=== PATIENT | female | born 1960 | race African-American/Black ===

== ENCOUNTER 2016-10-03 07:30 | Inpatient (IN) ==
[2016-09-27 10:02] LABS: MANUAL DIFF NEEDED? NO
[2016-09-27 10:05] LABS: BASO% 0.3 % (0.0-0.8); EOS# 0.02 X1000 (0.0-0.7); EOS% 0.3 % (0.0-10.0); HEMATOCRIT 50.2 % (37.0-47.0); HEMOGLOBIN 17.6 g/dL (12.0-16.0); IMM GRAN# 0.02 X1000 (0.0-0.04); IMM GRAN% 0.3 % (0.0-0.5); LYMPH# 2.21 X1000 (1.2-3.4); MCH 30.6 PG (27-31); MCHC 35.1 g/dL (33-37); MCV 87.3 FL (81-99); MONO# 0.53 X1000 (0.11-0.59); MONO% 9.1 % (1.7-9.3); MPV 11.3 FL (7.4-10.4); PLT 204 X1000 (130-400); RBC 5.75 XMIL (4.2-5.4)
--- NOTE | 2016-10-02 13:12 | HISTORY AND PHYSICAL ---
ADMITTING PHYSICIAN: Dr. Starr. ADMITTING DIAGNOSES: 1. Pelvic pain. 2. Right adnexal mass. SUMMARY: Mrs. Garcia is a 56-year-old, 4, para 1-0-3-1 who recently was diagnosed with a right complex adnexal mass. It measures 5.7 x 4.6 x 5.2 cm. There are both solid and cystic areas identified. We did a CA-125 which is 10. After discussing options with the patient, she is being admitted as an outpatient. We will attempt to do laparoscopic surgery and remove both ovaries. If there are too many adhesions we will do an exploratory laparotomy, and remove both ovaries. PAST MEDICAL HISTORY: Patient has had a vaginal delivery followed by 3 spontaneous miscarriages. She had a total abdominal hysterectomy in 2003 for fibroids. Prior to that she had a myomectomy. She has had cervical neck surgery 3 times. ALLERGIES: To amoxicillin and morphine. CURRENT MEDICATIONS ARE: Losartan/hydrochlorothiazide and metoprolol. PHYSICAL EXAMINATION: WEIGHT: Her weight is 173, blood pressure 120/80. CARDIOVASCULAR: Regular rate and rhythm without murmurs, rubs, or gallops. PULMONARY: Clear. BREASTS: No masses. ABDOMEN: Tender without rebound, rigidity, or guarding. PELVIC: On pelvic examination, there is diffuse tenderness. EXTREMITIES: No clubbing, edema or cyanosis. IMPRESSION: 1. Pelvic pain. 2. Right adnexal mass. PLAN: We will proceed with laparoscopy. Risks of the surgery including pain, bleeding, infection, bowel or bladder injury, and anesthesia complications have been discussed. She understands that if we are unable to remove the ovaries laparoscopically a laparotomy will be performed.
[2016-10-03] MEDS ORDERED: LR 1,000 ML ONE ×4 (08:46→13:12)
[2016-10-03] MEDS ORDERED: SODIUM CHLORIDE 0.9% 10 ML ONE (08:54)
[2016-10-03] MEDS ORDERED: REGLAN ONE (08:54)
[2016-10-03] MEDS ORDERED: PEPCID ONE (08:54)
[2016-10-03] MEDS ORDERED: DIPRIVAN 1% ONE ×2 (08:59→10:59)
[2016-10-03] MEDS ORDERED: VERSED ONE (08:59)
[2016-10-03] MEDS ORDERED: FENTANYL ONE (08:59)
[2016-10-03] MEDS ORDERED: SENSORCAINE 0.25%/EPI 1:200,000 ONE (10:19)
[2016-10-03] MEDS ORDERED: DECADRON ONE ×2 (11:05→17:26)
[2016-10-03] MEDS ORDERED: CLAVE SECONDARY SET 11953 ONE (11:22)
[2016-10-03] MEDS ORDERED: KEFZOL 1 GM/D5W 50 ML ONE (11:22)
[2016-10-03 12:05] LABS: URINE SOURCE CATH
[2016-10-03 12:07] LABS: BILIRUBIN URINE NEGATIVE (NEGATIVE); BLOOD URINE 1+ (NEGATIVE); CLARITY CLEAR (CLEAR); COLOR YELLOW; GLUCOSE URINE NEGATIVE (NEGATIVE); LEUKOCYTES URINE TRACE (NEGATIVE); NITRITE URINE NEGATIVE (NEGATIVE); PROTEIN URINE 1+(30 mg/dL) mg/dL (NEGATIVE); SP GRAVITY URINE 1.015; URINE MICROSCOPIC NEEDED? YES; UROBILINOGEN URINE 4+(12 mg/dL)
[2016-10-03] MEDS ORDERED: AMBIEN PO PRN (12:09)
[2016-10-03] MEDS ORDERED: DEMEROL IM PRN (12:09)
[2016-10-03] MEDS ORDERED: NORCO-10 PO PRN (12:09)
[2016-10-03] MEDS ORDERED: ZOFRAN ODT PO PRN (12:09)
[2016-10-03] MEDS ORDERED: PHENERGAN IM PRN (12:09)
[2016-10-03] MEDS ORDERED: NORCO-5 PO PRN (12:09)
[2016-10-03] MEDS ORDERED: LEVSIN-SL SL PRN (12:09)
[2016-10-03] MEDS ORDERED: FLEET ENEMA PR PRN (12:09)
[2016-10-03] MEDS ORDERED: ZOFRAN IV PRN ×2 (12:09→14:38)
[2016-10-03] MEDS ORDERED: DULCOLAX PR PRN (12:09)
[2016-10-03 12:20] LABS: URINE EPITHELIAL CELLS <10 /HPF (<10); URINE RBC <10 /HPF (<10); URINE WBC <10 /HPF (<10)
[2016-10-03] MEDS: DILAUDID ONE ×5 (12:46→13:34)
[2016-10-03] MEDS ORDERED: TORADOL ONE (12:50)
--- NOTE | 2016-10-03 13:10 | OPERATIVE NOTE ---
PROCEDURE DATE: 10/03/2016 SURGEON: Akash Starr MD ASSISTANT TEACHER: Akash Ng MD ANESTHESIA: General endotracheal. OPERATION PERFORMED: 1. Laparoscopy. 2. Laparotomy. 3. Lysis of adhesions. 4. Right salpingo-oophorectomy. PREOPERATIVE DIAGNOSIS: Right ovarian cyst. POSTOPERATIVE DIAGNOSES: 1. Pelvic adhesions. 2. Right ovarian cyst. FINDINGS: At laparoscopy, extensive adhesions were encountered. We attempted to take these down laparoscopically. We were unsuccessful. Therefore, we did a laparotomy with further lysis of adhesions. We visualized a large, cystic right ovary. It appeared to be a simple cyst. The left adnexa could not be visualized or palpated. DESCRIPTION OF PROCEDURE: The patient was taken back to the operating room and, after general endotracheal anesthesia, was placed in the dorsal lithotomy position. The vagina, perineum, and abdomen were prepped and draped in the usual fashion. A Early catheter was placed in the urinary bladder. A periumbilical incision was made and, through this incision, a Veress needle was inserted. A pneumoperitoneum was created. A laparoscopic trocar was introduced without difficulty. There was no evidence of bowel or blood vessel injury. We had some visualization on the patient's left side. A 5 mm port was placed and, through this, the LigaSure device was placed and we attempted to take down adhesions. We were unable to take down the adhesions to the point of being able to visualize the right side of her abdomen. We therefore aborted the laparoscopy and proceed with laparotomy. She received IV antibiotics as we placed her in the supine position and removed the laparoscopic equipment. The laparoscopic incision was oversewn using Vicryl suture. A repeat midline incision was made. This was taken down to the fascia and the fascia was excised transversely. The rectus muscle was in the midline. The peritoneum was entered carefully. We then did extensive lysis of adhesions, bluntly and sharply, along with partial omentectomies to be able to visualize the pelvis. Once we were able to visualize the pelvis, we could see the large cystic right ovary. Using blunt and sharp dissection, the ovary was cleared. We used the LigaSure device to clamp, cauterize, and excised the infundibulopelvic ligament. Several other dense bands of adhesions were taken down and the ovary was removed intact. We then spent approximately 15 minutes trying to visualize the left adnexa. However, there were extensive adhesions in that area and we never could visualize or palpate the ovary. The decision was made to abort the attempt at left oophorectomy. At this point, all packs and instruments were removed. Initial sponge, instrument, and needle counts were reported as correct as the fascia was closed using running Vicryl suture. The 2nd and final sponge, instrument, and needle count was reported as correct. His adipose tissues were reapproximated using a running Vicryl suture and the skin edges then were approximated using azalia. Blood loss was approximately 30 mL. There were no complications. The patient was extubated and went to the recovery room in stable condition.
[2016-10-03] MEDS ORDERED: LASIX ONE (13:51)
[2016-10-03] MEDS: MYLICON PO SCH ×3 (14:22→20:39)
[2016-10-03] MEDS ORDERED: NARCAN IV PRN (14:38)
[2016-10-03] MEDS ORDERED: DILAUDID PCA VIAL IV PRN (14:38)
[2016-10-03] MEDS: LR 1,000 ML IV SCH (14:59)
[2016-10-03] MEDS: OFIRMEV 1000 MG/ISOTONIC SOLN 100 ML IV SCH ×2 (15:09→20:39)
[2016-10-03 16:15] LABS: HEMATOCRIT 51.2 % (37.0-47.0); HEMOGLOBIN 17.2 g/dL (12.0-16.0)
[2016-10-03] MEDS ORDERED: ZOFRAN ONE (17:26)
[2016-10-03] MEDS ORDERED: NEOSTIGMINE ONE (17:26)
[2016-10-03] MEDS ORDERED: ZEMURON ONE (17:26)
[2016-10-03] MEDS ORDERED: ROBINUL ONE (17:26)
[2016-10-03] MEDS ORDERED: QUELICIN (DOSE) ONE (17:26)
[2016-10-03] MEDS ORDERED: XYLOCAINE-MPF 2% ONE (17:26)
[2016-10-03] MEDS: TORADOL IV SCH (17:53)
[2016-10-03] MEDS: COLACE PO SCH (20:39)
[2016-10-03] MEDS ORDERED: PERIDEX MT SCH (21:00)
[2016-10-04] MEDS: TORADOL IV SCH ×2 (00:19→06:04)
[2016-10-04] MEDS: LR 1,000 ML IV SCH ×2 (00:23→06:04)
[2016-10-04] MEDS: OFIRMEV 1000 MG/ISOTONIC SOLN 100 ML IV SCH (02:40)
[2016-10-04] MEDS ORDERED: HYDROCODONE/APAP 7.5-325/15 ML PO PRN (06:12)
[2016-10-04 06:20] LABS: HEMATOCRIT 46.9 % (37.0-47.0); HEMOGLOBIN 15.6 g/dL (12.0-16.0); MCH 30.5 PG (27-31); MCHC 33.3 g/dL (33-37); MCV 91.6 FL (81-99); RBC 5.12 XMIL (4.2-5.4)
[2016-10-04] MEDS ORDERED: LOPRESSOR PO SCH (09:00)
[2016-10-04] MEDS ORDERED: HYDROCHLOROTHIAZIDE PO SCH ×2 (09:00)
[2016-10-04] MEDS ORDERED: COZAAR PO SCH (09:00)
[2016-10-04] MEDS ORDERED: LOSARTAN PO SCH (09:00)
[2016-10-04] MEDS: MYLICON PO SCH ×2 (09:26→12:47)
[2016-10-04] MEDS: COLACE PO SCH (09:26)
[2016-10-04] MEDS ORDERED: D/C PCA XX ONE (12:00)
[2016-10-04 16:06] VITALS: BP 126/78
--- NOTE | 2016-10-04 17:43 | DISCHARGE SUMMARY ---
ADMISSION DATE: 10/03/2016 DISCHARGE DATE: 10/04/2016 ADMITTING DIAGNOSES: 1. Pelvic pain. 2. Right adnexal mass. PRINCIPAL DIAGNOSES: 1. Pelvic pain. 2. Right adnexal mass. PRINCIPAL PROCEDURE: Laparoscopy followed by laparotomy, lysis of adhesions and right S and O. SUMMARY: Mrs. Garcia a 56-year-old, 4, para 1-0-3-1 who was recently diagnosed with a right complex adnexal mass. A CA-125 was in the normal range. After discussing options with the patient, she was admitted to the hospital. We attempted laparoscopic removal but due to extensive pelvic adhesions that was unsuccessful. We then did an exploratory laparotomy, and removed the right adnexa. I could not visualize the left adnexa. Final pathology report is pending. Postoperatively, the patient has done well. She has remained afebrile and all her vital signs were stable. She had an admission hemoglobin and hematocrit of 17.6/50.2 with discharge hemoglobin and hematocrit being 15.6/46.9. She is requesting discharge this evening. Her vital signs are stable. She is afebrile. Cardiovascular and pulmonary examinations were normal. Incision was clean and dry. Mrs. Garcia will go home today and I will see her back in the office next week. Routine discharge instructions, activity limitations, and precautions were discussed. She will be given a prescription for [place] 10 for postoperative pain.
== END 2016-10-04 18:00 | disposition home or self-care (01) | DRG 743 ==
LOC: P.OR 07:30 → P.WC 09:10 → P.OR 10-04 18:00 → P.WC 10-04 18:00
PROVIDERS: ADMIT Obstetrics & Gynecology; ATTEND Obstetrics & Gynecology
PROC: 0WJJ4ZZ Inspection of Pelvic Cavity, Percutaneous Endoscopic Approach (ICD-10-PCS; 2016-10-03)
PROC: 0UT50ZZ Resection of Right Fallopian Tube, Open Approach (ICD-10-PCS; principal; 2016-10-03 10:43)
PROC: 0UT00ZZ Resection of Right Ovary, Open Approach (ICD-10-PCS; 2016-10-03 10:43)
PROC: 0DNS0ZZ (ICD-10-PCS; 2016-10-03 10:43)
PROC: 0DNW0ZZ Release Peritoneum, Open Approach (ICD-10-PCS; 2016-10-03 10:43)
DX: N83.291 Other ovarian cyst, right side (principal); I10 Essential (primary) hypertension; N73.6 Female pelvic peritoneal adhesions (postinfective); F17.210 Nicotine dependence, cigarettes, uncomplicated; M46.90 Unspecified inflammatory spondylopathy, site unspecified; Z98.1 Arthrodesis status; Z79.899 Other long term (current) drug therapy
CPT/HCPCS: 36415; 81001; 85014; 85018; 85025; 85027; 94761; 94799; J0131; J0330; J0690; J1100; J1170; J1885; J1940; J2250; J2405; J2765; J3010; J7120; J2710; S0028

== ENCOUNTER 2019-09-28 10:39 | Inpatient (IN) ==
[2019-09-28] MEDS ORDERED: SODIUM CHLORIDE 0.9% INJ SCH (11:30)
[2019-09-28] MEDS ORDERED: NS 1,000 ML IV SCH (11:30)
--- NOTE | 2019-09-28 11:54 | Diag Imaging Result Doc PS360 ---
EXAM: CHEST-2 VIEWS INDICATION: SOB TECHNIQUE: 2 views COMPARISON: 08/27/2017 FINDINGS: The lungs are grossly clear. There is no discrete pleural fluid collection or pneumothorax. The cardiomediastinal silhouette and central vasculature are grossly unremarkable. IMPRESSION: No evidence of acute pathology by plain radiograph. Electronically signed by Akash Neal 09/28/2019 11:52 AM
--- NOTE | 2019-09-28 12:45 | EKG Report ---
Test Performed on : 09/28/2019 12:38:36 PM Test Reason : chest pain Blood Pressure : / mmHG Vent. Rate : 069 BPM Atrial Rate : 069 BPM P-R Int : 162 ms QRS Dur : 068 ms QT Int : 404 ms P-R-T Axes : 037 003 031 degrees QTc Int : 432 ms Normal sinus rhythm. Low voltage QRS Cannot rule out Anteroseptal infarct (cited on or before 27-DEC-2013) Abnormal ECG When compared with ECG of 05-JAN-2019 07:28, Questionable change in initial forces of Anterior leads Confirmed by Zafar Mcdaniel MD ([id number]) on 09/29/2019 9:00:51 PM
--- NOTE | 2019-09-28 14:00 | Diag Imaging Result Doc PS360 ---
EXAM: US ABDOMEN-COMPLETE INDICATION: nausea COMPARISON: None. FINDINGS: The gallbladder appears normal with no stones, wall thickening, or pericholecystic fluid. The common bile duct is normal in diameter. Sonographic Velasco's sign was reported to be negative. The liver is grossly unremarkable. Portal venous flow is hepatopetal. The visualized pancreas is unremarkable. The aorta and IVC are grossly unremarkable. The spleen is unremarkable. There is an 8 mm simple cyst associated with the left renal cortex. The kidneys are unremarkable, otherwise. IMPRESSION: Essentially unremarkable abdominal ultrasound. Electronically signed by Akash Neal 09/28/2019 1:58 PM
[2019-09-28] MEDS: PROTONIX IV SCH (14:49)
[2019-09-28] MEDS: SODIUM CHLORIDE 0.9% INJ SCH (14:49)
[2019-09-28 17:17] LABS: BASO# 0.03 X1000 (0.0-0.2); BASO% 0.3 % (0.0-0.8); EOS# 0.02 X1000 (0.0-0.7); EOS% 0.2 % (0.0-10.0); HEMATOCRIT 51.5 % (37.0-47.0); HEMOGLOBIN 17.6 g/dL (12.0-16.0); LYMPH# 2.09 X1000 (1.2-3.4); LYMPH% 22.4 % (20.5-51.1); MCH 29.8 PG (27-31); MCHC 34.2 g/dL (33-37); MCV 87.1 FL (81-99); MONO# 0.97 X1000 (0.11-0.59); MONO% 10.4 % (1.7-9.3); NEUT% 66.7 % (42.2-75.2); PLT 145 X1000 (130-400); RBC 5.91 XMIL (4.2-5.4); RDW 12.5 % (11.5-14.5); WBC 9.31 X1000 (4.8-10.8)
[2019-09-28] MEDS ORDERED: PNEUMOVAX 23 IM ONE (18:45)
[2019-09-28 19:38] LABS: AMYLASE 72 U/L (20-200); CK PROFILE 56 U/L (24-173); LIPASE 31 U/L (13-60)
[2019-09-28 19:39] LABS: ALB/GLOB RATIO 1.4; ALBUMIN 4.1 g/dL (3.5-5.0); ALKALINE PHOSPHATASE 98 U/L (32-104); GOT 16 U/L (10-30); GPT 21 U/L (10-36)
[2019-09-28 19:50] LABS: AGAP 23; BUN 20 mg/dL (8-22); CHLORIDE 85 mmol/L (98-107); COSMO 289; CREATININE 1.1 mg/dL (0.5-0.9); ESTIMATED GFR > 60; GLUCOSE 657 mg/dL (70-104); POTASSIUM 4.2 mmol/L (3.5-5.1); SODIUM 127 mmol/L (136-145); TCO2 19 mmol/L (25-35); TOTAL BILIRUBIN 0.81 mg/dL (0.20-1.00); TOTAL PROTEIN 7.1 g/dL (6.3-8.3)
[2019-09-28] MEDS ORDERED: HUMULIN R IV ONE (20:17)
[2019-09-28] MEDS ORDERED: NS 500 ML IV ONE (20:23)
[2019-09-28] MEDS: NS + KCL 20 MEQ 1,000 ML IV SCH (22:18)
[2019-09-28] MEDS: LOVENOX SUBQ SCH (22:18)
[2019-09-28] MEDS: ZOFRAN IV PRN (22:19)
--- NOTE | 2019-09-28 22:22 | HISTORY AND PHYSICAL ---
CHIEF COMPLAINT: 1. Upper abdominal pain. 2. Nausea every time she eats since Saturday. She is not eating anything for the last 2 days. HISTORY OF PRESENT ILLNESS: She is a 59-year-old female who came to my office with the above symptoms. Chest x-ray was stable and she was clinically dry. She was seen in my office on 09/08/2019 and she had annual exam done. At that time, A1c is going up. The patient was started on metformin. She was tender in epigastric area. I offered the family that she needs some IV fluids and further workup. Rule out gallbladder disease. Rule out peptic ulcer disease. Rule out pancreatitis. Basically, admitted to the hospital. Upon admission, sodium was 127. Blood sugar was 640. Hematocrit was elevated. She is started on IV fluids. In the meantime, workup is in progress. Ultrasound was negative for gallstone disease. CT scan was ordered and is pending. As a result, the hospital admission was warranted. PAST MEDICAL HISTORY: Atypical chest pain. Stress test was negative in 08/28/2018. Cervical spondylosis, uncontrolled diabetes, metabolic syndrome, fatty liver, hypertension, lichen planus, kidney stones, chronic tobacco abuse, nonspecific pulmonary nodules. PAST SURGICAL HISTORY: Partial hysterectomy, cervical vertebral fusion between C4-C5, bilateral cataracts removed, MEDICINES: Lipitor 20 mg daily, freestyle Jose prescription was given, metformin 850 p.o. b.i.d., metoprolol 50 daily, Zanaflex 4 mg as needed. ALLERGIES: Amoxicillin, morphine, and Norvasc. SOCIAL HISTORY: , 1 kid. Disability on social security. Living in [place]. Smoking half a pack a day, trying to quit. Occasionally drinks alcohol. FAMILY HISTORY: Father is 87 years old with high blood pressure. Mom is 75 with high blood pressure. Brother had heart disease. HEALTH MAINTENANCE IN MY OFFICE: Flu vaccine 2018. She is not up-to-date on pneumococcal vaccine. Last mammography May 2018. Mammography 09/10/2019. She has left breast asymmetry. Recommended left breast ultrasound. The last colonoscopy was done June [address] Mckinney. REVIEW OF SYSTEMS: HEENT: No headache. No vision problem. No earache. No sore throat. Neck: No goiter. No lymphadenopathy. No bruit. Cardiopulmonary: No chest pain, shortness of breath, PND, orthopnea. GI: Upper abdominal pain, nausea, vomiting. No constipation. : No history of hesitancy, frequency, dysuria. No swelling of legs. No joint pains. Neurologic: No focal symptoms or weakness. PHYSICAL EXAMINATION: VITAL SIGNS: Temp is 98 degrees, pulse 77, blood pressure 110/64. Height is 4 feet 11, 151 pounds. HEENT: Atraumatic, normocephalic. Pupils equal, react to light. TMs are normal. Dry mucous membranes. NECK: Supple. No lymphadenopathy. CHEST: Bilateral air entry. HEART: Sounds are regular. No murmur. ABDOMEN: Belly is soft, slightly tender in epigastric area. No signs of peritonitis. Negative Velasco sign. NEUROLOGIC: No neurological deficits. INVESTIGATIONS: White cell count 9.3, hematocrit 51.5, platelets 145,000. Sodium 127, potassium 4.2, anion gap is 23, BUN 20, creatinine 1.1, glucose 657, calcium 11. Cardiac enzymes were negative. Amylase, lipase were negative. ASSESSMENT AND PLAN: 1. A 59-year-old female admitted to the hospital with abdominal pain, nausea, vomiting with impending diabetic ketoacidosis and elevated anion gap. Plan is IV fluids, sliding scale with insulin coverage. 2. Uncontrolled diabetes. Last A1c in my office 8.9. The patient was started on metformin 850 p.o. b.i.d. on FreeStyle Jose. 3. Hyperlipidemia on Lipitor 20 mg daily. 4. Upper abdominal pain, IV Protonix, normal amylase, normal ultrasound and we will get a CT scan of the abdomen and pelvis. 5. Atypical chest pain. Stress test was negative January 2019. 6. Mild constipation. Last colonoscopy [address] Mckinney. We will check the labs in the morning. Currently, the patient is on clear liquid diet and will also give Lovenox for deep vein thrombosis prophylaxis and we will follow up. cc: Bandar Jackson MD [facility]
--- NOTE | 2019-09-28 22:24 | Diag Imaging Result Doc PS360 ---
CT ABD/PELVIS W/ORAL CONT ONLY - 09/28/2019 INDICATION: Abdominal pain COMPARISON: 07/18/2017 FINDINGS: There is some mild linear scarring in the lung bases stable from prior. Heart size is normal. There are small bilateral renal stones measuring up to 3 mm on the right and 2 mm on the left. The adrenal glands are bulky. There is a hyperdense cyst of the anterior left kidney which was present previously. There is inflammatory stranding around the ascending colon. There are several diverticula all throughout the colon diffusely. This includes the right colon. No free air or free fluid. The uterus is absent. Urinary bladder and rectum are normal. There are moderate degenerative changes of the spine. No acute or suspicious bony lesion. IMPRESSION: 1. Right-sided diverticulitis. 2. Small bilateral nonobstructing renal stones. This exam was performed using automated exposure control, adjustment of mA or kV according to patient size, and/or use of iterative reconstruction technique Electronically signed by Alexei Sainz 09/28/2019 10:22 PM
[2019-09-29] MEDS: HUMULIN R SUBQ SCH ×4 (02:21→16:03)
[2019-09-29] MEDS: NS + KCL 20 MEQ 1,000 ML IV SCH ×3 (02:22→21:48)
[2019-09-29 07:22] LABS: CALCIUM 9.7 mg/dL (8.8-10.2); CREATININE 1.5 mg/dL (0.5-0.9); POTASSIUM 3.4 mmol/L (3.5-5.1)
[2019-09-29 07:32] LABS: HEMOGLOBIN A1C 12.4 % (4.8-6.0)
[2019-09-29] MEDS ORDERED: LEVAQUIN 500 MG/D5W 500 MG/100 ML IVPB IV ONE (07:45)
[2019-09-29] MEDS ORDERED: CALMOSEPTINE OINTMENT TOP ONE (13:25)
[2019-09-29] MEDS: PROTONIX IV SCH (13:53)
[2019-09-29] MEDS: SODIUM CHLORIDE 0.9% INJ SCH (13:54)
[2019-09-29] MEDS: LOVENOX SUBQ SCH (21:48)
--- NOTE | 2019-09-29 22:04 | PROGRESS NOTE ---
DATE: 09/29/2019 SUBJECTIVE: Events noted. CT scan showed some diverticulitis. She is drinking alcohol on a daily basis and blood sugars were running high. She is not taking metformin as I discussed with the patient. She thinks metformin is causing the GI symptoms. PHYSICAL EXAMINATION: Vital signs: Temperature is 98.7 degrees, pulse 77. Vitals are stable. HEENT: Within normal limits. Neck: Supple. Chest: Clear. Heart: Sounds are regular. Abdomen: Belly is soft, nontender. No signs of peritonitis. LABS: CBC: White cell count 9.3, hematocrit 51. Sodium 135, potassium 3.4, chloride 100, glucose 209, anion gap came back to normal, A1c 12.4. Amylase and lipase were normal. CT scan of the abdomen and pelvis: Right-sided diverticulitis. Small bilateral nonobstructing renal stones. ASSESSMENT AND PLAN: 1. Uncontrolled diabetes due to noncompliance and unable to do metformin. Currently on sliding scale with insulin coverage. 2. Upper abdominal pain. Ultrasound is negative. Continue IV Protonix. Amylase and lipase is normal. 3. Right-sided ascending diverticulitis. IV Levaquin. 4. Deep vein thrombosis and gastrointestinal prophylaxis as per order sheet. 5. Follow up on the labs in the morning and we will check the C-peptide, consider other drugs as treatment for diabetes. She needs to control also with diet. Consider dietary consult. LEVEL OF DOCUMENTATION: 25 minutes. cc: Bandar Jackson MD
[2019-09-30] MEDS: NS + KCL 20 MEQ 1,000 ML IV SCH ×3 (00:34→18:52)
[2019-09-30] MEDS: HUMULIN R SUBQ SCH ×5 (00:34→21:30)
[2019-09-30] MEDS: ZOFRAN IV PRN (06:12)
[2019-09-30 07:43] LABS: BASO# 0.02 X1000 (0.0-0.2); BASO% 0.2 % (0.0-0.8); HEMOGLOBIN 15.7 g/dL (12.0-16.0); IMM GRAN# 0.04 X1000 (0.0-0.04); IMM GRAN% 0.3 % (0.0-0.5)
[2019-09-30 07:57] LABS: AGAP 16; BUN 9 mg/dL (8-22); CHLORIDE 101 mmol/L (98-107); COSMO 276; CREATININE 0.8 mg/dL (0.5-0.9); ESTIMATED GFR > 60; GLUCOSE 227 mg/dL (70-104); MAGNESIUM 1.8 mg/dL (1.5-2.7); POTASSIUM 3.7 mmol/L (3.5-5.1); SODIUM 135 mmol/L (136-145); TCO2 18 mmol/L (25-35)
[2019-09-30] MEDS ORDERED: XYLOCAINE 1%/EPI 1:100,000 INJ ONE (09:51)
[2019-09-30] MEDS: LEVAQUIN 500 MG/D5W 500 MG/100 ML IVPB IV SCH (10:19)
--- NOTE | 2019-09-30 10:33 | OPERATIVE NOTE ---
PROCEDURE DATE: 09/30/2019 NAME OF PROCEDURE: Incision and drainage of carbuncle, left groin. INDICATIONS: I was asked to drain the carbuncle in Ms. Garcia's left groin crease. DESCRIPTION OF PROCEDURE: The patient was placed in a frog-leg position. The skin was prepped with alcohol. Local anesthesia was achieved with 1% lidocaine with epinephrine. We then used an 18 needle to fredy the carbuncle. The underlying purulence was drained. A sterile gauze was placed over the wound and piece of tape was applied. She tolerated it well. cc: MD Bandar Gomez MD
[2019-09-30] MEDS ORDERED: NS 500 ML ONE (10:35)
[2019-09-30 11:54] LABS: EOS# 0.11 X1000 (0.0-0.7); EOS% 0.9 % (0.0-10.0); HEMATOCRIT 47.6 % (37.0-47.0); LYMPH# 1.52 X1000 (1.2-3.4); LYMPH% 12.6 % (20.5-51.1); MCH 29.8 PG (27-31); MCV 90.5 FL (81-99); MONO# 0.95 X1000 (0.11-0.59); MONO% 7.9 % (1.7-9.3); MPV 13.2 FL (7.4-10.4); NEUT# 9.39 X1000 (1.4-6.5); NEUT% 78.1 % (42.2-75.2); PLT 155 X1000 (130-400); RBC 5.26 XMIL (4.2-5.4); RDW 12.7 % (11.5-14.5); WBC 12.03 X1000 (4.8-10.8)
[2019-09-30] MEDS: PROTONIX IV SCH (12:47)
--- NOTE | 2019-09-30 21:50 | PROGRESS NOTE ---
DATE: 09/30/2019 SUBJECTIVE: The patient complains of a boil in the left groin. It is fluctuant, very small, needs to be I D. Belly is better and no abdominal pain. OBJECTIVE: Is 98 degrees, pulse is 85, blood pressure is stable.HEENT: Within normal limits. Chest: Clear. Heart: Sounds are regular. Abdomen: Belly is soft, nontender. Good bowel sounds and small impending abscess noted in the left groin. Neurologic: No obvious deficits. INVESTIGATIONS: White cell count 12, hematocrit 47.6, platelet 155,000. SMA 7: Sodium 135, potassium 3.7, glucose 227, C-peptide is 1.7. ASSESSMENT AND PLAN: 1. Abdominal pain is better. Ultrasound is negative. CT showed right-sided diverticulitis. Intravenous Levaquin. 2. Small abscess in the left groin. Dr. Fung did incision and drainage, appreciated. Continue IV fluids and Lovenox and continue IV Protonix. Since the C-peptide is low, I am going to discuss about using long-acting basal insulin, since she is not tolerating the medications and continue present treatment. LEVEL OF DOCUMENTATION: 25 minutes. cc: Bandar Jackson MD
[2019-09-30] MEDS ORDERED: AMBIEN PO PRN (22:30)
[2019-09-30] MEDS: LOVENOX SUBQ SCH (23:10)
[2019-10-01] MEDS: HUMULIN R SUBQ SCH ×4 (07:05→23:01)
[2019-10-01] MEDS: NS + KCL 20 MEQ 1,000 ML IV SCH (07:06)
[2019-10-01] MEDS: LEVAQUIN 500 MG/D5W 500 MG/100 ML IVPB IV SCH (08:30)
[2019-10-01] MEDS: PROTONIX IV SCH (12:06)
[2019-10-01] MEDS: SODIUM CHLORIDE 0.9% INJ SCH (12:07)
[2019-10-01] MEDS: LANTUS INSULIN SUBQ SCH (12:15)
--- NOTE | 2019-10-01 20:40 | PROGRESS NOTE ---
DATE: 10/01/2019 SUBJECTIVE:: Appreciated Dr. Fung's consult. I and D done on the left groin, much improved. C- peptide is low. I spoke to the patient. Will initiate low dose of insulin. The patient is tolerating the diet very well. No abdominal pain. PHYSICAL EXAMINATION: Vital Signs: Temperature is 98.3, pulse 95. Vitals are stable. HEENT: Within normal limits. Neck: Supple. Chest: Bilateral air entry. Cardiovascular: Heart sounds are regular. Abdomen: Belly is soft, nontender. Good bowel sounds. Neurologic: No neurological deficits. INVESTIGATIONS: C-peptide 1.7. ASSESSMENT AND PLAN: 1. Uncontrolled diabetes, not able to tolerate the medications since the C-peptide is low. We will start with low dose of Lantus at bedtime. Discontinue fluids. 2. Boil in the left groin, status post incision and drainage. Continue IV Levaquin. 3. Ascending colitis. IV Levaquin. Belly exam is benign, and will follow up. If she continues to improve, will discharge in the morning. LEVEL OF DOCUMENTATION: Twenty-five minutes. cc: Bandar Jackson MD
[2019-10-01] MEDS: LOVENOX SUBQ SCH (23:48)
[2019-10-02] MEDS: HUMULIN R SUBQ SCH (06:51)
[2019-10-02 07:55] VITALS: BP 152/74
[2019-10-02] MEDS: LEVAQUIN 500 MG/D5W 500 MG/100 ML IVPB IV SCH (09:02)
[2019-10-02] MEDS: LANTUS INSULIN SUBQ SCH (11:02)
--- NOTE | 2019-10-03 21:47 | DISCHARGE SUMMARY ---
ADMISSION DATE: 09/28/2019 DISCHARGE DATE: 10/02/2019 DISCHARGING DIAGNOSIS: 1. Uncontrolled diabetes due to noncompliance. 2. Abdominal pain due to acid reflux disease/ascending diverticulitis. 3. Left groin abscess status post I D by Dr. Fung. 4. Atypical chest pain. Previous stress test was 08/28/2018. 5. Cervical spondylosis. 6. Fatty liver. 7. History of lichen planus, resolved. 8. History of kidney stones on the right side. 9. Chronic tobacco abuse. 10. History of alcohol abuse. CONSULTS: Dr. Fung. PROCEDURES: I D of the left groin. BRIEF HISTORY: Please see the H P that was done on 09/28/2019. In brief, she is a 59-year-old female recently has uncontrolled diabetes, A1c 8.9. I started her on metformin twice a day with follow up on blood sugars. In the meantime, she has stopped taking metformin due to GI symptoms. She continues to have worsening of abdominal pain, nausea, vomiting for the last 2 days. The patient was extremely dehydrated in my office. Basically admitted to the hospital for the evaluation. HOSPITAL COURSE: After arrival, blood sugar was 678. Dr. Grey started on IV fluids, insulin, and replace the potassium. And apparently patient stopped taking the metformin. Follow up C- peptide levels are low. Patient could not tolerate any other medicines due to side effects. Patient is noncompliant with diet. She is also drinking whiskey on a daily basis. As a part of the nausea and vomiting, ultrasound was negative for gallstone disease. CT scan of the abdomen and pelvis showed ascending diverticulitis. Patient was started on IV Levaquin, Zofran. She also had a boil in the left groin for which Dr. Fung was consulted. He performed the incision and drainage and follow up, it is much improved. And since the C-peptide is low, unable to tolerate the medications, the patient was started on low dose of long-acting insulin. Continue to monitor blood sugars on FreeStyle Jose, prescription was given. The patient was advised to quit smoking as well as cut down the drinking. Outpatient dietary consult was reported. LABS: White cell count 12, hematocrit 47, platelets 155,000. Sodium 135, potassium 3.7, BUN 9, creatinine 0.8, glucose 227, C-peptide is 1.7. LFTs were normal. Cardiac enzymes were normal. Amylase and lipase were normal. RADIOLOGY PROCEDURE: Ultrasound of the abdomen essentially unremarkable, no stones. CT scan of the abdomen and pelvis, right-sided diverticulitis. Small bilateral nonobstructive renal stones. DISCHARGE INSTRUCTIONS: 1. Pneumococcal vaccine 23 was given 10/02/2019. 2. Hyzaar 50/12.5 daily, metoprolol 50 daily, and Diflucan 100 daily for 7 days, Lantus 15 units subcutaneous daily at bedtime, Prilosec 20 daily, Levaquin 500 daily for 10 days for the wound infection on the groin and diverticulitis. 3. Continue to monitor blood sugar and Freestyle Jose and follow up in my office in 10 days for monitoring blood sugars. cc: MD Dr. Kenton Hernandez
== END 2019-10-02 11:22 | disposition home or self-care (01) | DRG 638 ==
LOC: DIRADM 10:39 → 4N 11:26
PROVIDERS: ADMIT Internal Medicine; ATTEND Internal Medicine